=== PATIENT | female | born 1995 | race Hispanic/Latino ===

== ENCOUNTER 2019-02-08 09:49 | Outpatient (CLI) | payer OTHER ==
--- NOTE | 2019-02-08 12:44 | ULT ---
OB ULTRASOUND: 02/08/19 HISTORY: Size and dates. FINDINGS: Single live intrauterine gestation is seen and the measurements corresponding to an estimated gestati onal age of 21 weeks, 5 days and NASRIN at 06/16/2019. The estimated weight measures 469 grams (51st percentile by Hadlock criteria). The measurements are as follows: HC 19.5 cm 21 weeks, 4 days AC 17.3 cm 22 weeks, 1 day FL 3.74 cm 22 weeks, 0 days BPD 5.09 cm 21 weeks, 3 days heart rate measures 143 beats per minute. DONNY measures 14 cm. Placenta is posteriorly located w ithout evidence of placenta previa. A three vessel cord, cord insertion, kidneys, bladder, stomach, heart, lateral ventricles, cere bellum, spine, lips/nose, upper and lower extremities are visualized. No definite anomalies are seen. IMPRESSION: Single live IUP of 21 weeks, 5 days estimated gestational age and NASRIN at 06/16/2019. POS: FELICIA
== END 2019-02-08 09:50 | disposition home or self-care (01) ==
LOC: NAV ULT 09:49
PROVIDERS: ATTEND Family Medicine
DX: Z34.82 Encounter for supervision of other normal pregnancy, second trimester (principal); Z3A.21 21 weeks gestation of pregnancy
CPT/HCPCS: 76805